=== PATIENT | male | born 1945 | race Caucasian/White ===

== ENCOUNTER 2025-08-25 09:54 | Outpatient (CLI) | payer MEDICARE, SELFPAY ==
--- NOTE | 2025-08-25 11:35 | P.ANES_ITS ---
Anesthesia Charges Start Date/Time Anesthesia Start Date: 08/25/25 Anesthesia Start Time: 11:01 Stop Date/Time Anesthesia Stop Date: 08/25/25 Anesthesia Stop Time: 11:28 Summary Extremes of Age - Over 70 or under 1: PHARMACY SALESPERSON Coding CPT Codes CPT Codes: ANES LWR INTST NDSC NOS - 77829 ([id number]) P3 - PATIENT W/SEVERE SYS DISEASE, QK - COMMUNITY LIVING INSTRUCTOR 2-4 CNCRNT ANES PROC, QX - PHARMACY SALESPERSON SVC W/ MD MED DIRECTION Additional Codes: Summary - Extremes of Age - Over 70 or under 1: PHARMACY SALESPERSON ([id number])
--- NOTE | 2025-08-25 11:35 | W.ANESCHARGE ---
Anesthesia Charges Start Date/Time Anesthesia Start Date: 08/25/25 Anesthesia Start Time: 11:01 Stop Date/Time Anesthesia Stop Date: 08/25/25 Anesthesia Stop Time: 11:28 Summary Extremes of Age - Over 70 or under 1: E LEARNING DEVELOPER Coding CPT Codes CPT Codes: ANES LWR INTST NDSC NOS - 14615 ([id number]) P3 - PATIENT W/SEVERE SYS DISEASE, QK - METER ATTENDANT 2-4 CNCRNT ANES PROC, QX - E LEARNING DEVELOPER SVC W/ MD MED DIRECTION Additional Codes: Summary - Extremes of Age - Over 70 or under 1: E LEARNING DEVELOPER ([id number])
--- NOTE | 2025-08-25 11:47 | W.ANESCHARGE ---
Anesthesia Charges Start Date/Time Anesthesia Start Date: 08/25/25 Anesthesia Start Time: 11:01 Stop Date/Time Anesthesia Stop Date: 08/25/25 Anesthesia Stop Time: 11:28 Summary Extremes of Age - Over 70 or under 1: MDA Coding CPT Codes CPT Codes: ANES LWR INTST NDSC NOS - 87813 ([id number]) QK - RUG DRYING MACHINE OPERATOR 2-4 CNCRNT ANES PROC, QX - MARKETING OPERATIONS CONSULTANT SVC W/ MD MED DIRECTION, P3 - PATIENT W/SEVERE SYS DISEASE Additional Codes: Summary - Extremes of Age - Over 70 or under 1: MDA ([id number])
== END 2025-08-25 09:55 | disposition home or self-care (01) ==
PROVIDERS: PCP Family Medicine; Visit Provider Internal Medicine Gastroenterology
DX: D12.2 Benign neoplasm of ascending colon (principal); D12.3 Benign neoplasm of transverse colon; D12.8 Benign neoplasm of rectum; K57.30 Diverticulosis of large intestine without perforation or abscess without bleeding; Z86.0101 Personal history of adenomatous and serrated colon polyps
CPT/HCPCS: 00811; 45385; 99100; J2704

== ENCOUNTER 2025-08-25 12:14 | Emergency (ER) | payer MEDICARE, SELFPAY ==
--- OUTSIDE RECORDS SUMMARY | 2025-08-25 12:17 | XMS_ITS | Clinical Summary ---
Author Organization [facility] Address [address] [place] [address] Care Team Providers Care Registered Medical Transcriptionist Name Role Phone Unavailable Primary Care Provider Unavailabl e Source Comments Patient records contain information from all sites at [facility]. For routine questions regarding patient records, call [phone] during business hours, M-F 8:00 AM - 5:00 PM Central Time. Record requests for emergency care only can be directed to [phone] at any time.[facility] Allergies Active AllergyReactionsCriticalityNoted DateCommentsAspirinGI rwjmcuma36/07/2017 patient reported Insect OifswVihepkplgki06/09/2022 Early 1999s stung by insect, lost consciousness and stopped breathing Medications MedicationSigDispense QuantityRefillsLast FilledStart DateEnd DateStatus ibuprofen (ADVIL,MOTRIN) 200 mg capsule Take 400 mg by mouth 2 (two) times a day as needed for pain.Active ergocalciferol, vitamin D2, (VITAMIN D2 ORAL) Take 4,000 Units by mouth daily.Active RED YEAST RICE ORAL Take 1 capsule by mouth daily.Active Social History Tobacco UseTypesPacks/DayYears UsedDateSmoking Tobacco: Never AssessedSex and Gender InformationValueDate RecordedSex Assigned at BirthNot on fileLegal Sex Male10/10/2016 10:29 AM CSTGender IdentityNot on fileSexual OrientationNot on file Plan of Treatment Health MaintenanceDue DateLast DoneCommentsHepatitis C Gwtsriywj1945 DTaP,Tdap,and Td Vaccines (1 - Tdap)1965Zoster Vaccines (1 of 2)1996 RSV vaccine - (32-36 weeks) or 50+ years (1 - 1-dose 75+ series) 2021epression Screening (Annual PHQ-2)09/07/2024Fall Risk Screen (Annual) 5COVID-19 Vaccine (2024- season)501/, 07/04/2023, 08/04/2022, Additional history existsInfluenza Vaccine (#1)501/, 07/04/2023, 08/04/2022, Additional history existsPneumococcal vaccine (50+ years)Chkxdezxm26/21/2019, 12/12/2016IPV VaccinesAged OutNo longer eligible based on patient's age to complete this topic Insurance [facility] Address: [facility] [address] [place] [address]
--- OUTSIDE RECORDS SUMMARY | 2025-08-25 12:17 | XMS_ITS | Clinical Summary ---
Author Organization [employer] Address [address] [place] [address] Care Team Providers Care Test Automation Architect Name Role Phone Ronnie Toth MD Primary Care Provider [phone] Baljeet Jimenez [phone] Allergies Active AllergyReactionsCriticalityNoted DuuwBdzjcbgrQmypourXkgytkix36/07/2017 patient reported Hymenoptera Allergenic ExtractAnaphylaxis,Other - Describe In Comment FieldHigh 05/29/2008 unconcious IbuprofenRash,Ncbpapqzyxy93/07/2017 Medications MedicationSigDispense QuantityRefillsLast FilledStart DateEnd DateStatus km-nyo-beffb acid-lutein (Centrum Silver) 400-250 mcg chew Chew by mouth.ctive cholecalciferol (Vitamin D-3) 2,000 unit capsule Take 2 Capsules (4,000 units) by mouth once daily.ctive ascorbic acid SR (Vitamin C) 500 mg capsule Take 500 mg by mouth once daily.Active aspirin enteric coated 325 mg tablet Indications:Persistent atrial fibrillation (HC)Take 1 Tablet (325 mg) by mouth once daily with a meal.5Active niacin 500 mg tablet Take 1 Tablet (500 mg) by mouth once daily.5Active red yeast rice 600 mg tab Take by mouth once daily. 2 tabs,5Active losartan 25 mg tablet Indications:Persistent atrial fibrillation (HC),Chronic systolic heart failure (HC)Take 0.5 Tablets (12.5 mg) by mouth once daily. 45 Tablet 5Active metoprolol succinate 25 mg Sustained-Release tablet Indications:Persistent atrial fibrillation (HC)Take 0.5 Tablets (12.5 mg) by mouth once daily. 45 Tablet 5Active ezetimibe 10 mg tablet Indications:HypercholesterolemiaTake 1 Tablet (10 mg) by mouth once daily. 90 Tablet 5Active polyethylene glycol-electrolyte (GOLYTELY) 236-22.74-6.74 -5.86 gram suspension Indications:Encounter for screening colonoscopyDrink 2 liters (half the bottle) the day before the procedure and 2 liters (half the bottle) 6 hours prior to procedure. 4000 mL 5Active Active Problems ProblemNoted DateDiagnosed DateNew onset atrial eqzzcdwbdnjc87/22/2024 Overview (03/28/2024): March 2024: new diagnosis. JTL9OB7-EVCg score of 3. Patient declined further anticoagulation but didagree to aspirin 325 daily. Habitual alcohol use12/12/2016 Overview (12/12/2016): December 2016: 6 alcohol drinks daily. Ybjcnwfatzga40/07/2017 Overview (12/12/2016): December 2016: hypertension medication recommended, but Patient declined. Tuuwyvmqudnmfgxnipuq70/07/2017 Overview (03/13/2025): December 2016: ASCVD Risk Wildlife Manager: 33 % 10 Year risk after info entered, statin recommended, but Patient declined. June 2020: LDL over 200. ASCVD Risk Wildlife Manager: 42 % 10 Year risk after info entered. Previously was on statin, but Stopped Cholesterol medication , less myalgia since stopping the statin. February 2023: LDL 188, ASCVD Risk Wildlife Manager: 39 % 10 Year risk after info entered. Statin recommended,Patient declined. January 2025: Trying ezetimibe. Elevated fasting vjuidcl7012/12/2016 Overview (03/10/2023): December 2016: 115 fasting. June 2020: Fasting 136, Hemoglobin A1c 6.2. February 2023: Fasting 116, Hemoglobin A1c 6.3. Bee sting /23/2008Colon fipenv3407/30/2008 Overview (07/25/2020): 10 polyps seen on colonosopy 07/2008 - at least 2 tubular adenomas Colonoscopy 11/2012 polyps repeat in 5 years Colonoscopy 07/2020 polyps, repeat in 5 years Encounters DateTypeDepartmentCare YdjhAfqtjznmdje76/19/2025Telephone [facility] [address] [place] [address] Ronnie Toth MD Twsnmqodv83/19/7362Jasulp61/02/2025Telephone [facility] [address] [place] [address] Alton Lantigua MD 08/08/2025Orders Only [facility] [address] [place] [address] Alton Lantigua MD <No scans attached>from Last 3 Months Immunizations ImmunizationAdministration DatesNext DueInfluenza, High-dose Inactivated 09/28/2024,06/27/2019Influenza, High-dose Quadrivalent Ljepocymrrm15/28/2023, 08/04/2022Influenza, Inactivated AIIV4 (Age 65+ Years) Preserv Free06/20/2020 Pneumococcal Poly,23-Valent (Pneumovax)06/27/2019Pneumococcal conj 13-Valent (Prevnar 13)12/12/2016 Family History Medical HistoryRelationNameCommentsCancerFatherDied 84Cancer-prostateFather CancerMotherBone Cancer, 72RelationNameStatusCommentsFatherMother Social History Tobacco UseTypesPacks/DayYears UsedDateSmoking Tobacco: NeverSmokeless Tobacco: NeverAlcohol UseStandard Drinks/KdbmMftniizoIvz66 (1 standard drink = 0.6 oz pure alcohol)04/05/2024 vodka tonic double 1 time per day and 3-4 glass of wine dailyPHQ-2AnswerDate RecordedPHQ-2 TOTAL [id number] Connections AnswerDate RecordedDo you often feel lonely or isolated from those around you?0 03/28/2024Financial Resource StrainAnswerDate RecordedDifficulty of Paying Living Qwlefcqy314ifficulty of Paying Living ExpensesNot on file 03/28/2024Food InsecurityAnswerDate RecordedDo you worry your food will run out before you are able to buy more?Transportation NeedsAnswerDate RecordedDoes lack of transportation keep you from medical appointments?1 03/28/2024oes lack of transportation keep you from work, meetings or getting things that you need?Housing StabilityAnswerDate RecordedWhat is your housing situation today?UtilitiesAnswerDate RecordedDo you have trouble paying for utilities (for example, heat, electricity, water, phone)?1 03/28/2024Sex and Gender InformationValueDate RecordedSex Assigned at BirthNot on fileLegal LzfZnea2309/20/2012 5:47 AM CSTGender IdentityNot on fileSexual OrientationNot on file Last Filed Vital Signs Vital SignReadingTime TakenCommentsBlood Hrjgifxj838/7107 8:14 AM CDT Zkqfy616403/13/2025 8:14 AM JATHglzvaxngxh23.8 ??C (98.3 ??F)12/23/2012 1:10 PM CDTRespiratory Tcba936310/12/2024 12:45 PM CSTOxygen Uepzkrslrp52%03/13/2025 8:14 AM CDTInhaled Oxygen Concentration--Pbmljl242 kg (224 lb 12.8 oz)03/13/2025 8:14 AM MGRPdziln987.4 cm (5' 10.25)09/23/2024 7:21 AM CSTBody Mass Index32.03 09/23/2024 7:21 AM CLAIMS AGENT RIGHT OF WAY Plan of Treatment Health MaintenanceDue DateLast DoneCommentsTetanus bxqibxg5008/05/1957Zoster (shingles) series for age 50+ (1 of 2)1996RSV vaccine for adults or (1 - 1-dose 75+ series)2021Medicare Wellness for age 65+ , 03/09/2023, 06/20/2020, Additional history exists Depression screening for age 12+, 03/28/2024, 03/09/2023, Additional history existsCOVID-19 vaccine series (2024- season)2025 09/28/2024, 07/04/2023, 08/04/2022, Additional history existsInfluenza Vaccine (#1)5009/28/2024, 06/20/2020, 06/27/2019BMI (ht and wt on same day) for age 18+6009/23/2024, 04/05/2024, 03/28/2024, Additional history exists Pneumococcal series for age 50+Cbpufdekj82/21/2019, 12/12/2016Hepatitis C screening for age 18-75Ahxqmdsqx09/14/2020Hepatitis B series for 19+Aged OutNo longer eligible based on patient's age to complete this topic Procedures Procedure NamePriorityDate/TimeAssociated DiagnosisCommentsCOLONOSCOPY SCREENING Ixqfpyi4908/25/2025 8:34 AM CLAIMS AGENT RIGHT OF WAY Polyp of colon, unspecified part of colon, unspecified type ANTI GUMTqumwve10/14/2020 9:15 AM CDT Need for hepatitis C screening test from Last 3 Months or Most Recently Relevant to Health Maintenance Results * ANTI HCV (06/20/2020 9:15 AM CDT)ComponentValueRef RangeTest MethodAnalysis TimePerformed AtPathologist SignatureHEPATITIS C ANTIBODYNon-Reactive Non-Kdysnozj76/14/2020 5:42 PM CDTALCAN[facility] Comment:Antibodies to HCV not detected; does not exclude the possibility of exposure to HCV.Specimen (Source)Anatomical Location / LateralityCollection Method / VolumeCollection TimeReceived TimeBloodBLOOD SPECIMEN / Unknown Venipuncture / Hrygsvq5306/20/2020 9:15 AM CDT1 9:15 AM CDT Narrative Authorizing ProviderResult TypeResult StatusSaul Osmani Toth MDSEND OUTSFinal ResultPerforming OrganizationAddressCity/State/ZIP CodePhone Number [facility] [address] [place] [address], [place] from Last 3 Months or Most Recently Relevant to Health Maintenance Insurance * Guarantor: Selinder, Niraj EAccount TypeRelation to PatientDate of BirthPhone Billing AddressPersonal/FgxzxhKund1945 [id number] [address] [address] Care Teams Team MemberRelationshipSpecialtyStart DateEnd Ronnie Toth MD PCP - General05/29/08 Baljeet Jimenez [address] [phone] OrthopedicsSurgery - Orthopedics03/28/24
[2025-08-25 12:27] VITALS: BP 174/103; RESP 16; TEMP 37; O2SAT 99; BMI 39.5
--- NOTE | 2025-08-25 12:43 | ED.GENADULT ---
HPI - General Adult General Chief complaint: Chest Pain Stated complaint: AFIB Time Seen by Provider: 08/25/25 12:17 History of Present Illness HPI narrative: Friendly 80-year-old male presents to the emergency department referred from endoscopy for rapid AFib. Patient was having a colonoscopy for history of prior polyps. During the procedure, he went into rapid AFib. He does have a history of atrial fibrillation, this is not new. He is typically in atrial fibrillation but rate controlled on metoprolol. He has been out of his medication for the past 2 days. His episode of rapid AFib resolved without any treatment from endoscopy but he is referred to the emergency department for further evaluation. He is asymptomatic. He does not endorse any recent chest pain, shortness of breath. He does monitor his blood pressure at home, or other his does and he reports that a few days ago when checked it was 117 over 74 but that was when he was taking his metoprolol. Blood pressure is 170 these systolic here in the ED. He has a prior history of pretty heavy alcohol use that I can see from the [facility] records. Nonsmoker. He does have a notable history of prior GI bleed which for this reason he has been hesitant to take aspirin. Eliquis is completely cost prohibitive. He has been prescribed this in the past, he is not willing to pay this black. He does accept the risk and understand that he has a higher risk of stroke by being on aspirin rather than Eliquis. He is currently taking 81 mg of aspirin daily and has not noticed any GI changes. No recent stress test or cardiac workup. He does have hyperlipidemia which he has chosen not to treat with a statin due to side effects. He does typically use Zetia. He is overdue for a visit with his primary care team and is willing to schedule this. No recent fever or illness. No trauma or injury. Asymptomatic and feeling well today. Per the endoscopy team, symptoms lasted less than a 1/2 hour. Notes reviewed. Outside records from primary care team reviewed as well. Past medical history notable for AFib, hyperlipidemia, regular alcohol use and colon polyps. Not currently using any of his prescription medications but is willing to go back on 11/29 aspirin and metoprolol 12.5 mg extended release once daily after our discussion. Allergy to bee sting, intolerance to ibuprofen and aspirin. ROS negative times 12 systems today. He is asymptomatic for any conditions. Related Data Previous Rx's ?Medication ?Instructions ?Recorded metoprolol succinate 25 mg 25 mg PO DAILY atrial fibrillation 08/25/25 tablet,extended release 24 hr #90 tabs Allergies Allergy/AdvReac Type Severity Reaction Status Date / Time ibuprofen Allergy Mild Verified 08/25/25 12:34 venom-honey bee AdvReac Severe Anaphylaxis Verified 08/25/25 12:34 Exam Const: Vital Signs, click to edit/add: Vital Signs - 24 hr 08/25/25 12:27 Temperature 98.6 F Respiratory Rate 16 Blood Pressure [Ri ght Upper Arm] 174/103 H Pulse Oximetry 99 Oxygen Delivery Me thod Room Air Documenting provider has reviewed patient's vital signs: yes Common normals: no apparent distress and alert General appearance: cooperative, comfortable and well kempt HENMT: Common normals: normocephalic, moist oral mucous membranes and oropharynx normal Head and scalp: normocephalic Eye: Common normals: conjunctivae normal General eye: normal appearance of both eyes Conjunctiva: conjunctiva(e) normal Neck & C-Spine: Common normals: full ROM and no lymphadenopathy General: normal visual inspection Chest: Common normals: inspection of chest normal Resp: Common normals: normal respiratory effort, no use of accessory muscles and clear to auscultation bilaterally Auscultation: clear to auscultation bilaterally Cardio: Other: Rate and rhythm are irregular. Early systolic murmur 2/6 noted. Positive S1 and S2. No gallops today. GI: Common normals: Normal to inspection, nondistended, normoactive bowel sounds present, soft to palpation, non-tender and no hepatosplenomegaly Inspection: normal to inspection Palpation: soft and no hepatosplenomegaly Back & Pelvis: Common normals: thoracic and lumbar spine normal to inspection Extremity: Common normals: normal to inspection, normal capillary refill and no pedal edema General: normal exam except as noted Neuro: Common normals: moves all extremities Sensorium/orientation: alert Speech: speech normal Psych: Appearance: well kempt Attitude: engaged Activity/motor behavior: appropriate eye contact Attention/concentration: attention grossly intact Memory/cognition: memory grossly intact Insight: insight good Judgement: judgment good Skin: Common normals: no rashes or lesions noted General skin exam: no rashes or lesions noted Course Course ED Course: 80-year-old male with history of AFib that had an episode of rapid AFib, now resolved. Patient off of his medications due to running out, this logically seems like an episode triggered by medication compliance. Patient eyes in some time discussing his medications. He is not having any limiting side effects to the metoprolol and is willing to go back on it if I am willing to send a refill the prescription which of course IM. We will give a single dose of metoprolol here in the ED today. I counseled him that based his blood pressures I do think that he would benefit from going on a full 25 mg tablet. He is not sure if he wants to do this but I did family and marriage counsellor him to give it a try and monitor his blood pressure, following up with his primary care physician in about 3 weeks to see how things have been going on it and ensure that symptoms are improving as would be expected. We also discussed his aspirin. The Eliquis really is cost prohibitive and I certainly understand that we discussed stroke risk and I would like him taking 325 mg of enteric-coated aspirin. I stressed the importance of taking this with food, to reduce the chance of GI bleed and stomach problems. We reviewed the signs and symptoms of GI bleed that would of course warrant ER evaluation and if he is noticing dark tarry stools to drop to the 81 mg tablet which he is not currently experiencing. Will obtain basic electrolytes, hemoglobin magnesium level the and PE just to ensure that there are no other triggers for his episode of AFib today. Troponins are not likely to be helpful as this could be be elevated simply because of the episode of AFib but I have obtained a 12 lead EKG which is very reassuring and will watch him on a quality assurance monitor final. He again remains asymptomatic. If things go well and there were no further events and labs are reassuring, will discharge home with new prescription for the metoprolol after dose given here in the ED. He assures me that he can pick it up from the pharmacy today. Alarm symptoms reviewed that would warrant ED re-evaluation in the interim. Reevaluation(s) Time of Reevaluation #1: 13:24 Reevaluation #1: All labs reviewed, within normal limits. Counseled patient on findings. He remained asymptomatic. Heart rate has continue to be appropriately rate controlled. He got his metoprolol. Blood pressure now 159/87. We discussed plan of care, no changes from what was discussed above. Patient will discharge home, go to the pharmacy and get his metoprolol. Encouraged to follow up if any further persistent symptoms and make that follow-up appointment with his primary care doc in 3 weeks. Vital Signs Vital signs: Initial Vital Signs Temperature 98.6 F 08/25/25 12:27 Temperature Source Temporal Artery Scan 08/25/25 12:27 Respiratory Rate 16 08/25/25 12:27 Blood Pressure 174/103 H 08/25/25 12:27 Blood Pressure Mean 126 H 08/25/25 12:27 Blood Pressure Position Sitting 08/25/25 12:27 Pulse Oximetry 99 08/25/25 12:27 Oxygen Delivery Method Room Air 08/25/25 12:27 Vital Signs Temperature 98.6 F 08/25/25 12:27 Respiratory Rate 16 08/25/25 12:27 Blood Pressure 174/103 H 08/25/25 12:27 Pulse Oximetry 99 08/25/25 12:27 Oxygen Delivery Method Room Air 08/25/25 12:27 Temperature 98.6 F 08/25/25 12:27 Respiratory Rate 16 08/25/25 12:27 Blood Pressure 174/103 H 08/25/25 12:27 Pulse Oximetry 99 08/25/25 12:27 Oxygen Delivery Method Room Air 08/25/25 12:27 Medications Administered Medications: Discontinued Medications Generic Name Dose Route Start Last Admin Trade Name Freq PRN Reason Stop Dose Admin Metoprolol Succinate 12.5 mg 08/25/25 12:38 08/25/25 12:59 Metoprolol Succinate (Xl) 25 Mg Tab PO 08/25/25 12:39 12.5 mg DAILY ONE Administration Medical Decision Making Lab Data Lab results reviewed: Yes I reviewed the patient's lab results Lab results narrative: Labs stable, no pertinent findings Labs: Lab Results 08/25/25 Range/Units 12:33 WBC 5.99 (4.50-11.00) K/uL RBC 4.27 L (4.30-5.90) m/uL Hgb 14.0 (13.5-17.5) gm/dL Hct 42.9 (37.0-53.0) % MCV 101 H (80-100) fL MCH 33 (26-34) pg MCHC 33 (32-36) gm/dL RDW Coeff of Brant 12.8 (11.5-15.5) % Plt Count 193 (140-440) K/uL Neut % (Auto) 57.6 (42.0-72.0) % Lymph % (Auto) 33.7 (20-44) % [place] % (Auto) 7.0 (0.0-11.0) % Eos % (Auto) 1.3 (0.0-7.0) % Baso % (Auto) 0.2 (0.0-3.0) % Neut # (Auto) 3.45 (1.7-7.0) K/uL Lymph # (Auto) 2.02 (0.90-2.90) K/uL [place] # (Auto) 0.40 (0.00-0.90) K/UL Eos # (Auto) 0.08 (0.00-0.50) K/uL Baso # (Auto) 0.01 (0.00-0.30) K/uL Abs Immat Gran (auto) 0.01 (0.00-0.30) K/uL Imm/Tot Granulo (auto) 0.2 % Sodium 138 (135-149) mmol/L Potassium 4.6 (3.6-5.1) mmol/L Chloride 104 (96-114) mmol/L Carbon Dioxide 29 (20-32) mmol/L Anion Gap 5 L (7-15) mEq/L BUN 12 (7-30) mg/dL Creatinine 0.8 (0.5-1.5) mg/dL Estimated Creat Clear 57.95 Estimated GFR 90 ml/min Glucose 118 H (60-115) mg/dL Calcium 8.9 (8.4-10.6) mg/dL Magnesium 2.1 (1.5-2.6) mg/dL Total Bilirubin 1.2 (0.1-1.5) mg/dL AST 30 (12-35) U/L ALT 25 (4-50) U/L Alkaline Phosphatase 53 (40-150) U/L NT-Pro-B Natriuret Pep 886 H (See Note) pg/mL Total Protein 7.7 (6.0-8.3) g/dL Albumin 4.4 (3.3-5.0) g/dL ECG Data Attestation: I personally reviewed and interpreted this ECG as follows: Prior ECG tracings: available for review ( Comparison through [facility]) Interpretation: atrial fibrillation with a current rate of 63. Intervals and axis are otherwise reassuring. No acute appearing ST or T-wave abnormalities. Stable EKG. Discharge Plan Discharge Clinical Impression: Atrial fibrillation with rapid ventricular response Patient Disposition: Home w/ Parent or Adult Condition: Improved Instructions: A-fib (Atrial Fibrillation) (ED) Additional Instructions: as we discussed, I do think that this episode happened today from a combination of the anesthesia used for the procedure and you being off of your metoprolol. As we discussed, staying on the metoprolol is very important for the function of your heart. I recommend that you restart the medication and have sent a refill to your pharmacy. It is still important that you make an appointment with her primary care doc to check in on other things such as your cholesterol and other risk factors. It in the meantime, I do want you to restart your metoprolol. I am okay with you staying off of your losartan due to side effects. We discussed your blood thinners and I would recommend that you take aspirin 325 mg enteric-coated every day to reduce her risk of stroke since the Eliquis really is incredibly expensive. This is not as effective at preventing a stroke but is still very good. I want you to check your blood pressure daily, varying times of the day and write down your levels. Follow-up with your primary care doc in 3 weeks or so to go over those values. I am thinking that you probably do need to increase her metoprolol to 25 mg daily which is 1 full pill but this will give us more information regarding what dose is correct for you. If you have stroke-like symptoms, chest pain, other general worsening, please return to the emergency room. Activity Level: No Restrictions Discharge Diet: Regular Prescriptions: New metoprolol succinate 25 mg tablet extended release 24 hr 25 mg PO DAILY Qty: 90 4RF Follow Up/Referrals: Ronnie Toth MD [Primary Care Provider, Family Practice] Stand Alone Forms: [employer] Info Instructions
[2025-08-25 12:48] LABS: Hematocrit* 42.9 % (37.0-53.0); Hemoglobin* 14.0 gm/dL (13.5-17.5); Immature Granulocytes Abs Auto 0.01 K/uL (0.00-0.30); Immature Granulocytes Pct Auto 0.2 %; Lymphocytes Absolute Auto 2.02 K/uL (0.90-2.90); Mean Corpuscular HGB Conc 33 gm/dL (32-36); Mean Corpuscular Hemoglobin 33 pg (26-34); Mean Corpuscular Volume 101 fL (80-100); RDW Coefficient of Variation % 12.8 % (11.5-15.5); Red Blood Count* 4.27 m/uL (4.30-5.90); White Blood Count* 5.99 K/uL (4.50-11.00)
[2025-08-25 12:58] LABS: Slide Review Reflex No
[2025-08-25] MEDS: METOPROLOL SUCCINATE (XL) 25 MG TAB 12.5 MG PO (12:59)
[2025-08-25 13:01] LABS: Albumin* 4.4 g/dL (3.3-5.0); Chloride* 104 mmol/L (96-114)
[2025-08-25 13:02] LABS: Potassium* 4.6 mmol/L (3.6-5.1); Sodium* 138 mmol/L (135-149)
[2025-08-25 13:04] LABS: Alanine Aminotransferase* 25 U/L (4-50); Anion Gap 5 mEq/L (7-15); Aspartate Amino Transferase* 30 U/L (12-35); Blood Urea Nitrogen* 12 mg/dL (7-30); Carbon Dioxide* 29 mmol/L (20-32); Creatinine* 0.8 mg/dL (0.5-1.5); Est. Creatinine Clearance* 57.95; Estimated Glomerular Filt Rate 90 ml/min
[2025-08-25 13:05] LABS: Alkaline Phosphatase* 53 U/L (40-150); Bilirubin Total* 1.2 mg/dL (0.1-1.5); Calcium* 8.9 mg/dL (8.4-10.6); Glucose* 118 mg/dL (60-115); Total Protein* 7.7 g/dL (6.0-8.3)
[2025-08-25 13:16] LABS: NT Pro B Type NatriureticPept* 886 pg/mL (See Note)
== END 2025-08-25 13:38 | disposition home or self-care (01) ==
LOC: ED 12:51
PROVIDERS: Emergency Provider Family Medicine; PCP Family Medicine
DX: I48.20 Chronic atrial fibrillation, unspecified (principal); Z79.01 Long term (current) use of anticoagulants
CPT/HCPCS: 36415; 80053; 83735; 83880; 85025; 93005; 99284; A9270